=== PATIENT | female | born 1935 | race Caucasian/White ===

== ENCOUNTER 2021-03-14 10:03 | Outpatient (CLI) | payer MEDICARE, OTHER, SELFPAY ==
--- NOTE | 2021-03-14 10:08 | XR_ITS ---
WS: [id number] SCREENING DEXA SCAN [facility] CLINICAL INFORMATION: AGE-RELATED OSTEOPOROSIS WITHOUT CURRENT PATHOLOGICAL FRACTU COMPARISON: FINDINGS: The L1-L4 bone mineral density measures 0.924 g/cm2. This corresponds to a T score score of -2.1 and Z score of -0.4. Left femoral neck bone mineral density measures 0.790 g/cm2. This corresponds to a T score of -1.7 an d Z score of 0.5. Right femoral neck bone mineral density measures 0.765 g/cm2. This corresponds to a T score -1.9of an d Z score of 0.3. Mean femoral neck bone mineral density measures 0.778 g/cm2. This corresponds to a T score of -1.8 an d Z score of 0.4. XR/XR DEXA axial skeleton* [id number] IMPRESSION: Osteopenia Patient's FRAX calculated 10 year probability for major osteoporotic fracture i s 14.4 % and osteoporotic hip fracture is 4.5%.
== END 2021-03-14 10:04 | disposition home or self-care (01) ==
PROVIDERS: PCP Nurse Practitioner Family; Visit Provider Nurse Practitioner Family
DX: M81.0 Age-related osteoporosis without current pathological fracture (principal); M85.88 Other specified disorders of bone density and structure, other site
CPT/HCPCS: 77080

== ENCOUNTER 2022-04-09 09:04 | Outpatient (CLI) | payer MEDICARE, OTHER, SELFPAY ==
--- NOTE | 2022-04-09 09:30 | USCV_ITS ---
[place] Age: 86 Gender: F : 1935 Exam Date: 04/09/2022 09:32 Ordering Phys: Omid Camp MD ([email or web address]) Technologist: Jose Hwang Exam Location: [facility] [place] Indication: Dyspnea BP: 126 / 70 HR: 59 Rhythm: Sinus Technical Quality: Technically difficult study MEASUREMENTS (Male / Female) Normal Values 2D ECHO LV Diastolic Diameter PLAX 4.9 cm 4.2 - 5.9 / 3.9 - 5.3 cm LV Systolic Diameter PLAX 3.8 cm IVS Diastolic Thickness 0.8 cm 0.6 - 1.0 / 0.6 - 0.9 cm IVS Systolic Thickness 0.9 cm LVPW Diastolic Thickness 0.9 cm 0.6 - 1.0 / 0.6 - 0.9 cm LVPW Systolic Thickness 1.0 cm LVOT Diameter 2.0 cm LV Ejection Fraction 2D Teich 45.9 % LV Ejection Fraction MOD 2C 63.6 % LV Ejection Fraction 2C AL 63.7 % LA Diameter 3.1 cm LA Width 3.5 cm LA Height 3.5 cm RA Width 3.4 cm RA Height 4.2 cm Aorta at Sinotubular Diameter 2.6 cm IVC Diameter 1.5 cm M-MODE Aortic Annulus Diameter 2.8 cm LA Ao Ratio MM 1.1 MV E Point Septal Separation 0.7 cm DOPPLER AV Peak Velocity 118.7 cm/s LVOT Peak Velocity 78.0 cm/s AV Area Cont Eq vti 1.7 cm squared AV Area Cont Eq pk 2.1 cm squared MV Peak Velocity 103.0 cm/s MV Area PHT 5.0 cm squared Mitral E to A Ratio 0.5 MV E' Velocity 22.5 cm/s Mitral E to MV E' Ratio 4.4 Mitral E to LV E' Lateral Ratio 4.6 Mitral E to LV E' Septal Ratio 4.2 TR Peak Velocity 254.7 cm/s TR Peak Gradient 25.9 mmHg TR Mean Velocity 194.5 cm/s TR Mean Gradient 16.6 mmHg TR Velocity Time Integral 76.6 cm Right Atrial Pressure 3.0 mmHg Pulmonary Artery Systolic Pressu 28.9 mmHg PV Peak Velocity 131.0 cm/s RV Acceleration Time 0.1 s RV Ejection Time 0.3 s RV AcT/ET 0.4 FINDINGS Left Ventricle Normal left ventricular size, systolic function and wall thickness, with no regional wall motion abnormalities. Left ventricular ejection fraction is estimated at 60 %. Grade I diastolic dysfunction (abnormal relaxation filling pattern), normal to mildly elevated filling pressures. Right Ventricle Normal right ventricular size and systolic function. Right ventricular systolic pressure 26 mmHg. Right Atrium Normal right atrial size. Right atrial pressure estimated at 3 mmHg. Left Atrium Normal left atrial size. Mitral Valve Structurally normal mitral valve. No mitral valve stenosis. Trace mitral valve regurgitation. Aortic Valve Mildly thickened and calcified probably trileaflet aortic valve. No aortic valve stenosis. Mild aortic valve regurgitation. Tricuspid Valve Structurally normal tricuspid valve. No tricuspid valve stenosis. Trace to mild tricuspid valve regurgitation. Pulmonic Valve Pulmonic valve not well visualized. No pulmonary valve stenosis. Trace pulmonary valve regurgitation. Pericardium No pericardial effusion. Aorta Normal size aortic root and proximal ascending aorta. IVC Normal IVC dimension with >50% respiratory change of the inferior vena cava. CONCLUSIONS 1. This is a technically difficult study. 2. Normal left ventricular size, systolic function and wall thickness, with no regional wall motion abnormalities. Left ventricular ejection fraction is estimated at 60 %. Grade I diastolic dysfunction (abnormal relaxation filling pattern), normal to mildly elevated filling pressures. 3. Normal Pulmonary artery pressure estimated at 26 mmHg. 4. Mild aortic valve regurgitation. 5. When compared to previous echocardiogram 05/01/2016, there may not have been any significant change. Delphine Lopez MD (Electronically Signed) Final Date: 11 April 2022 12:56 S
== END 2022-04-09 09:05 | disposition home or self-care (01) ==
LOC: RAD 09:08
PROVIDERS: PCP Nurse Practitioner Family; Visit Provider Internal Medicine Cardiovascular Disease
DX: R06.00 Dyspnea, unspecified (principal); I35.1 Nonrheumatic aortic (valve) insufficiency
CPT/HCPCS: 93306

== ENCOUNTER → 2022-08-30 14:40 | Outpatient (BNVA) | payer MEDICARE, OTHER, SELFPAY | PROVIDERS: PCP Family Medicine; Visit Provider Nurse Practitioner Family | DX: I25.10 Atherosclerotic heart disease of native coronary artery without angina pectoris (principal); I10 Essential (primary) hypertension; I42.8 Other cardiomyopathies | CPT/HCPCS: 99214 ==

== ENCOUNTER → 2023-02-27 16:37 | Outpatient (BNVA) | payer MEDICARE, OTHER, SELFPAY | PROVIDERS: PCP Family Medicine; Visit Provider Internal Medicine Cardiovascular Disease | DX: R07.9 Chest pain, unspecified (principal); I35.1 Nonrheumatic aortic (valve) insufficiency; E78.5 Hyperlipidemia, unspecified; I25.10 Atherosclerotic heart disease of native coronary artery without angina pectoris; I10 Essential (primary) hypertension; I42.8 Other cardiomyopathies; R94.31 Abnormal electrocardiogram [ECG] [EKG] | CPT/HCPCS: 93005; 99214 ==

== ENCOUNTER → 2023-02-28 14:40 | Outpatient (BNVA) | payer MEDICARE, OTHER, SELFPAY | PROVIDERS: PCP Family Medicine; Visit Provider Nurse Practitioner Women's Health | DX: R39.9 Unspecified symptoms and signs involving the genitourinary system (principal); N39.0 Urinary tract infection, site not specified | CPT/HCPCS: 81000; 87086 ==

== ENCOUNTER → 2023-03-14 14:24 | Outpatient (BNVA) | payer MEDICARE, OTHER, SELFPAY | PROVIDERS: PCP Family Medicine; Visit Provider Obstetrics & Gynecology | DX: N76.0 Acute vaginitis (principal); R30.0 Dysuria | CPT/HCPCS: 84315; 87086 ==

== ENCOUNTER → 2023-09-12 11:03 | Outpatient (BNVA) | payer MEDICARE, OTHER, SELFPAY | PROVIDERS: PCP Family Medicine; Visit Provider Nurse Practitioner Family | DX: I25.10 Atherosclerotic heart disease of native coronary artery without angina pectoris (principal); I10 Essential (primary) hypertension | CPT/HCPCS: 99214 ==

== ENCOUNTER → 2024-02-24 09:51 | Outpatient (BNVA) | payer MEDICARE, OTHER, SELFPAY | PROVIDERS: PCP Family Medicine; Visit Provider Internal Medicine Cardiovascular Disease | DX: I25.10 Atherosclerotic heart disease of native coronary artery without angina pectoris (principal); I42.8 Other cardiomyopathies; I10 Essential (primary) hypertension; E78.5 Hyperlipidemia, unspecified; R53.83 Other fatigue; I08.0 Rheumatic disorders of both mitral and aortic valves | CPT/HCPCS: 99214 ==

== ENCOUNTER 2024-04-01 08:41 | Outpatient (CLI) | payer MEDICARE, OTHER, SELFPAY ==
--- NOTE | 2024-04-01 | ECG_ITS ---
[facility] Test Date: 2024-04-01 Pat Name: Charlotte Burris Department: Room: Gender: Female [employer] Supervisor: Noah Coreas : 1935 Requested By: Omid Camp Order Number: [id number] Ashley MD: Omid Camp M.D. Interpretive Statements NAME OF STUDY: LEXISCAN SESTAMIBI STRESS TEST INDICATION: Fatigue/ASHD, PROCEDURE: At the baseline, the EKG revealed normal sinus rhythm with Poor R wave progression. Some nonspecific ST-T changes in the inferolateral leads.. The baseline heart was 60 bpm with a blood pressue of 139/63 mm of Hg Lexiscan was infused over a period of 20 seconds. A total of 0.4 milligrams of Lexiscan was infused. The stress phase was continued for a total of 5 minutes. Heart rate at the end of the stress phase was 77 bpm with a blood pressure 124/62 mm of Hg. The EKG at the peak infusion revealed no significant changes. Sestamibi was injected 20 seconds after the Lexiscan infusion. Heart rate at the end of the recovery phase was 76 bpm with a blood pressure of 135/63 mm of Hg. CONCLUSION: 1. No significant EKG changes with the LexiScan infusion 2. No LexiScan induced chest pain or cardiac arrhythmia 3. Normal blood pressure and heart rate response 4. Sestamibi/sestamibi perfusion scan pending; see separate report. Electronically Signed On 04-02-2024 22:27:37 CDT by Omid Camp M.D. [id number]
--- NOTE | 2024-04-01 08:58 | NMCV_ITS ---
NM juhi perf SPECT r/s* [id number] Charlotte Burris Age: 88 Gender: F : 1935 Exam Date: 04/01/2024 08:58 Ordering Phys: Omid Camp MD ([email or web address]) Technologist: JERO Duvall Exam Location: [facility] [place] Indications: Fatigue/ASHD STRESS TEST Please see separate stress test report in [facility] for full findings IMAGE PROTOCOL Rest/Stress 1 Lexiscan Day Radiopharmaceutical Dose (mCi) Administration Site Administered by Rest: Tc-99m 10.8 IV JERO [place] Sestamibi Stress:Tc-99m 32.4 IV JERO [place] Sestamibi Rest: 01-Apr-2024 60 Discovery 630 Stress: 01-Apr-2024 30 Discovery 630 0.4mg Lexiscan. Supine position only as patient was unable to lay prone. SPECT RESULTS Technical Quality: Good Raw Data Analysis: Subdiaphragmatic activity Image Corrections: No attenuation or motion correction applied Summed Stress Score: 5 Summed Rest Score: 5 Summed Difference Score: 0 PERFUSION FINDINGS Small to moderate area of moderately decreased tracer uptake was noted in the mid inferolateral, apical lateral and apical inferior regions. No significant reversibility was noted in these regions. FUNCTIONAL RESULTS (calculated via Gated SPECT) Stress Image LV EF (%): 57 Stress EDV (mL):84 TID: 1.13 Stress ESV (mL):36 FUNCTIONAL FINDINGS: Segmental wall motion analysis revealing no gross wall motion abnormalities IMPRESSIONS 1. Myocardial perfusion imaging revealing small to moderate area of persistent decreased tracer uptake involving the mid inferolateral, apical lateral and apical inferior regions suggesting myocardial scarring versus attenuation artifact 2. Normal LV ejection fraction 57%. 3. LV wall motion analysis revealing no gross wall motion abnormalities. 4. Normal LV volume Low probability for coronary ischemia, based on the above findings No similar previous studies are available for comparison Dr Omid Camp MD [facility] (Electronically Signed) Final Date: 01 April 2024 22:15 S
[2024-04-01 08:59] VITALS: BMI 26.9
[2024-04-01] MEDS: regadenoson 0.4 Mg/5 ml Syringe IVP (10:38)
[2024-04-01 10:50] VITALS: BP 135/63; PULSE 76
== END 2024-04-01 08:42 | disposition home or self-care (01) ==
PROVIDERS: PCP Family Medicine; Visit Provider Internal Medicine Cardiovascular Disease
DX: I25.10 Atherosclerotic heart disease of native coronary artery without angina pectoris (principal); I34.0 Nonrheumatic mitral (valve) insufficiency; R94.39 Abnormal result of other cardiovascular function study
CPT/HCPCS: 36415; 78452; 93017; 96374; A9500; J2785